=== PATIENT | female | born 1960 | race Caucasian/White ===

== ENCOUNTER 2022-01-12 12:15 | Observation (INO) | payer BC ==
[~2022-01-12] VITALS: Ht 154.9 cm; Wt 62.6 kg
[2022-01-12 12:29] VITALS: BP_SYST 150
[2022-01-12 13:42] LABS: ANION GAP 8 (5-15); CALCIUM 8.9 mg/dL (8.4-11.0); CHLORIDE 105 mmol/L (98-107); CREATININE 0.89 mg/dL (0.55-1.30); GLUCOSE 102 mg/dL (70-99); POTASSIUM 4.6 mmol/L (3.5-5.1); SODIUM SERUM 141 mmol/L (136-145); UREA NITROGEN, BLOOD 13 mg/dL (8-21)
[2022-01-12 13:45] LABS: GFR AFRICAN AMERICAN 83 mL/min (>90)
[2022-01-12 13:50] LABS: ALANINE AMINOTRANSFERASE 19 U/L (12-78); ALBUMIN 3.7 g/dL (3.4-4.8); ASPARTATE AMINOTRANSFERASE 21 U/L (10-37); TOTAL BILIRUBIN 0.4 mg/dL (0.0-1.0)
--- NOTE | 2022-01-12 16:10 | NUR ---
MD CARRINGTON IN TRIAGE FOR MSE
[2022-01-12] MEDS ORDERED: KETOROLAC TROMETHAMINE 15 MG VIAL IM ONE (16:45)
[2022-01-12 16:53] LABS: HEMOGLOBIN 12.2 g/dL (12.0-16.0); LYMPHOCYTES % (AUTO) 24.1 % (20.5-51.5); MEAN CORPUSCULAR HEMOGLOBIN 33 pg (27-31); MEAN CORPUSCULAR HGB CONC 34 % (32-36); MEAN CORPUSCULAR VOLUME 96 fL (79.0-98.0); NEUTROPHILS % (AUTO) 65.4 % (40.0-70.0); PLATELET COUNT (AUTO) 149 K/uL (130-430); RED BLOOD CELL COUNT(AUTO) 3.74 MIL/uL (4.2-6.2); RED CELL DISTRIBUTION WIDTH 12.3 % (9.0-15.0); WHITE BLOOD COUNT (AUTO) 3.9 K/uL (4.8-10.8)
[2022-01-12 16:54] LABS: BASOPHILS % (AUTO) 0.8 % (0.0-2.0); EOSINOPHILS % (AUTO) 0.7 % (0.0-4.0); LYMPHOCYTES # (AUTO) 0.9 K/uL (1.0-5.5); MONOCYTES # (AUTO) 0.4 K/uL (0.0-1.0); NEUTROPHILS # (AUTO) 2.6 K/uL (1.8-7.7)
--- NOTE | 2022-01-12 18:19 | NUR ---
Placed in room 03 . Placed on school bus monitor, blood pressure machine and pulse oximeter. To gown for exam. Side rails up. Report given to JOSEPH ROSS
--- NOTE | 2022-01-12 18:25 | NUR ---
PATIENT AMBULATORY TO ROOM 3 C/O LEFT JAW PAIN, SEEN BY EDP WITH ORDER HONEY OUT. PATIENT AAOX4 SPEECH CLEAR AND COHERENT.
--- NOTE | 2022-01-12 19:31 | NUR ---
Rec report from Hema RUIZ.
--- NOTE | 2022-01-12 19:31 | NUR ---
PT A&O x4, following commands, and safety precautions in place. Pt states she feels okay with slight pain but it is tolerable. VSS.
--- NOTE | 2022-01-12 19:31 | NUR ---
Heavenly simmons in [facility] - 01/12/22 at 1940 by [email or web address] Rec report from Mandi BUCHANAN
--- NOTE | 2022-01-12 21:15 | NUR ---
Heavenly simmons in [facility] - 01/12/22 at 2324 by [id number] Lab reported ESR of 52. Dr. Byrd made aware.
[2022-01-12] MEDS ORDERED: METHYLPREDNISOLONE SOD SUCC 40 MG/ML VIAL IVP ONE (21:30)
--- NOTE | 2022-01-12 21:40 | NUR ---
Pixis ou tof medication. House sup called to bring medf. Will wait for arrival. made aware.
[2022-01-12] MEDS ORDERED: KETOROLAC TROMETHAMINE 15 MG VIAL IVP ONE (22:00)
[2022-01-12] MEDS ORDERED: METHYLPREDNISOLONE SOD SUCC IV ONE (22:03)
--- NOTE | 2022-01-12 22:53 | NUR ---
Dr. Merino made aware of BP of 172/99. No new orders at the this time. Pt connected to monitor and safety precautions in place. Pt states her pain has subsided after pain medication was administered.
[2022-01-12] MEDS ORDERED: LEVO25TA7 PO (23:04)
--- NOTE | 2022-01-12 23:43 | NUR ---
Admit bed requested Patient will be admitted to care of Dr. Fleming. Admitted to med surg unit. Diagnosis RULE OUT TEMPORAL ARTERITIS Inpatient (Yes or No) YES Observation (Yes or No) YES Orientation concerns or request close to nursing station (Yes or No) NO Covid Status NEGATIVE On vent or bipap NO Isolation requirements NO Needs a sitter NO From Home (Yes or if No enter name of facility) YES Requires Dialysis (Yes or No) NO Med Rec Completed (Yes of No) YES
[2022-01-12] MEDS ORDERED: hydrALAZINE HCL 20 MG/ML VIAL IVP PRN (23:45)
--- NOTE | 2022-01-13 02:25 | NUR ---
Patient will be admitted to care of Dr. Fleming. Admitted to med surg unit. Will go to room 109A. Belongings list completed. Complete and up to date summary report printed. SBAR report given to Malcolm RUIZ at bedside with opportunity for questions.
[2022-01-13 02:38] VITALS: BP_SYST 148
[2022-01-13 07:53] LABS: CALCIUM 9.1 mg/dL (8.4-11.0); CREATININE 0.82 mg/dL (0.55-1.30); POTASSIUM 3.9 mmol/L (3.5-5.1)
[2022-01-13 07:59] LABS: ALBUMIN 3.5 g/dL (3.4-4.8); TOTAL BILIRUBIN 0.4 mg/dL (0.0-1.0)
[2022-01-13 08:00] VITALS: BP_SYST 124
[2022-01-13] MEDS: METHYLPREDNISOLONE SOD SUCC IV SCH ×2 (09:00→10:38)
[2022-01-13] MEDS: D5W IV SCH ×2 (09:00→10:38)
[2022-01-13] MEDS ORDERED: methylPREDNISolone SOD SUCC/PF 62.5 MG/ML VIAL IVP SCH (09:00)
[2022-01-13 12:00] VITALS: BP_SYST 120
[2022-01-13] MEDS ORDERED: LEVO88TA5 PO (14:13)
[2022-01-13 14:22] LABS: CORRECTED WHITE BLOOD COUNT 2.7 K/uL (4.5-11.0); HEMATOCRIT 36.1 % (36-48); HEMOGLOBIN 12.2 g/dL (12.0-16.0); MEAN CORPUSCULAR VOLUME 95 fL (79.0-98.0); RED BLOOD CELL COUNT(AUTO) 3.81 MIL/uL (4.2-6.2)
[2022-01-13 14:23] LABS: MEAN CORPUSCULAR HEMOGLOBIN 32 pg (27-31); MEAN CORPUSCULAR HGB CONC 34 % (32-36); PLATELET COUNT (AUTO) 157 K/uL (130-430); RED CELL DISTRIBUTION WIDTH 12.4 % (9.0-15.0)
[2022-01-13 14:24] LABS: BASOPHILS % (AUTO) 0.2 % (0.0-2.0); EOSINOPHILS % (AUTO) 0.1 % (0.0-4.0); LYMPHOCYTES # (AUTO) 0.4 K/uL (1.0-5.5); LYMPHOCYTES % (AUTO) 14.9 % (20.5-51.5); MONOCYTES % (AUTO) 1.3 % (1.7-9.3); NEUTROPHILS # (AUTO) 2.2 K/uL (1.8-7.7); NEUTROPHILS % (AUTO) 83.5 % (40.0-70.0); WHITE BLOOD COUNT (AUTO) 2.7 K/uL (4.8-10.8)
--- NOTE | 2022-01-13 16:33 | NUR ---
ATTENDING MD DR MCDONALD WAS CALLED, RE: Pain medication for severe headache. Spoke to
[2022-01-13] MEDS ORDERED: ACETAMINOPHEN 325 MG TABLET PO PRN (17:00)
[2022-01-13] MEDS ORDERED: PRED10TA PO (18:30)
[2022-01-13 20:14] VITALS: BP_SYST 100
--- NOTE | 2022-01-19 12:43 | NUR ---
IV ADMINISTRATION END TIME (Observation Patients ONLY): Late entry IV infusion of Methylprenisolone Sodium Succinate/Dextrose started at 09:00 on 01/13/22 and ended at 11:00 01/13/22.
== END 2022-01-13 23:06 | disposition home or self-care (01) ==
LOC: SED 12:15 → SMU 23:43
PROVIDERS: ADMIT Internal Medicine; ATTEND Internal Medicine
DX: R68.84 Jaw pain (principal); Z20.822 Contact with and (suspected) exposure to COVID-19; R51.9 Headache, unspecified; M31.6 Other giant cell arteritis
CPT/HCPCS: 99285; 80053 ×2; 83880; 85025 ×2; 85651; 86140; 84484; 36415 ×2; 93005 ×2; 70360; 71045; 70487; 70491; 76376; 87426; 96372; 96375 ×2; 96376; 96365; 96366; J1885; J2930 ×3; Q9967; J0360; J7060; G0378